=== PATIENT | male | born 1950 | race Caucasian/White ===

== ENCOUNTER 2022-06-04 12:19 | Emergency (ER) | payer SELFPAY ==
[~2022-06-04] VITALS: Ht 170.2 cm; Wt 70.0 kg
[2022-06-04 14:02] LABS: HEMATOCRIT. 38.2 % (42.0-52.0); HEMOGLOBIN. 13.2 g/dL (14.0-18.0); MEAN CORPUSCULAR HEMOGLOBIN 32.8 pg (28.0-32.0); MEAN CORPUSCULAR VOLUME 94.8 fL (80.0-94.0); MEAN PLATELET VOLUME 7.7 fl (7.4-10.4); PLATELET 123 x1000/uL (130-400); RED BLOOD CELL COUNT 4.03 mill/uL (4.7-6.1); RED CELL DISTRIBUTION WIDTH 14.6 % (11.6-14.6)
[2022-06-04 14:13] LABS: CHLORIDE 104 mEq/L (98-107)
[2022-06-04 14:23] LABS: PLATELET ESTIMATE SLIGHTLY DECREASED
[2022-06-04] MEDS ORDERED: POTASSIUM CHLORIDE 20MEQ TABLET SR PO NR (15:45)
[2022-06-04 15:51] LABS: CLARITY URINE CLEAR (CLEAR); COLOR URINE ORANGE (YELLOW); KETONES URINE TRACE (NEGATIVE); LEUKOCYTE ESTERASE URINE 1+ (NEGATIVE); NITRITE URINE NEGATIVE (NEGATIVE); OCCULT BLOOD URINE TRACE (NEGATIVE); PH URINE 5.5 (4.5-8.0); PROTEIN URINE 1+ (NEGATIVE); SPECIFIC GRAVITY URINE 1.027 (1.005-1.030)
[2022-06-04] MEDS ORDERED: CEFTRIAXONE 1 G PREMIX 50 ML IV NR (16:15)
[2022-06-04] MEDS ORDERED: SODIUM CHLORIDE 0.9% 1,000 ML IV ONE (16:15)
[2022-06-04] MEDS ORDERED: ACETAMINOPHEN 325MG TABLET PO NR (16:30)
[2022-06-04] MEDS ORDERED: CIPR-263 MT (16:57)
[2022-06-04] MEDS ORDERED: ACET-2708 MT (16:57)
[2022-06-04 17:00] VITALS: BP 112/58
== END 2022-06-04 17:09 | disposition home or self-care (01) ==
LOC: ER 14:00
DX: N39.0 Urinary tract infection, site not specified (principal); F15.10 Other stimulant abuse, uncomplicated; Z20.822 Contact with and (suspected) exposure to COVID-19
CPT/HCPCS: 36415; 71045; 80053; 81003; 83605; 85025; 87077; 87086; 87186; 87426; 87804; 96365; 99284; C9803; J0696